=== PATIENT | female | born 1970 | race Asian ===

== ENCOUNTER 2018-03-02 15:49 | Emergency (ER) | payer OTHER ==
[2018-03-02 16:18] VITALS: BP 119/76
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
== END 2018-03-02 16:38 | disposition home or self-care (01) ==
LOC: ED 15:49
DX: T26.41XA Burn of right eye and adnexa, part unspecified, initial encounter (principal); X10.2XXA Contact with fats and cooking oils, initial encounter; Y92.511 Restaurant or cafe as the place of occurrence of the external cause
CPT/HCPCS: 1040M; 99282

== ENCOUNTER 2019-10-18 12:20 | Day surgery (SDC) | payer OTHER ==
[~2019-10-18 12:20] MED LIST: LIDOCAINE 1%-EPI 1:100000 20 ML MDV ONE; LIDOCAINE-MPF 1% 30 ML VIAL ONE; VASOPRESSIN 20 UNIT/ML VIAL ONE
[2019-10-18] MEDS ORDERED: LACTATED RINGERS 1,000 ML IV ONE (12:37)
[2019-10-18 13:00] LABS: HCG UR QUAL NEGATIVE
--- NOTE | 2019-10-18 13:43 | ANESTHESIA ---
Pre-Anesthesia VS, & Labs - Diagnosis dysmenorrhea - Procedure myosure hysteroscopy, D&C Vital Signs: Temp Pulse Resp BP Pulse Ox 36.9 C 73 16 102/59 L 98 10/18/19 12:37 10/18/19 12:37 10/18/19 12:37 10/18/19 12:37 10/18/19 12:37 Height 4 ft 11.84 in Weight (kg) 49.6 kg Body Mass Index 21.7 - NPO >8 hours - Is Patient ?: No - Lab Results Lab results reviewed: Yes Home Medications and Allergies Home Medications: Ambulatory Orders Ascorbic Acid [Vitamin C] 250 mg PO 10/12/19 Cholecalciferol (Vitamin D3) [Vitamin D3] 1,250 mcg PO 10/12/19 Lactobacillus Acidophilus [Probiotic Acidophilus] 1.5 mg PO 10/12/19 Multivitamin [One Daily Multivitamin] 1 each PO 10/12/19 Coin-3/Dha/Epa/Fish Oil [Fish Oil 1,000 mg Softgel] 1 each PO 10/12/19 Vitamin E 1,000 unit PO 10/12/19 Levothyroxine [Synthroid] 88 mcg PO QDAC 08/04/17 Ascorbic Acid [Vitamin C] 250 mg PO 10/12/19 Cholecalciferol (Vitamin D3) [Vitamin D3] 1,250 mcg PO 10/12/19 Lactobacillus Acidophilus [Probiotic Acidophilus] 1.5 mg PO 10/12/19 Multivitamin [One Daily Multivitamin] 1 each PO 10/12/19 Coin-3/Dha/Epa/Fish Oil [Fish Oil 1,000 mg Softgel] 1 each PO 10/12/19 Vitamin E 1,000 unit PO 10/12/19 Allergies/Adverse Reactions: Allergies Allergy/AdvReac Type Severity Reaction Status Date / Time pineapple Allergy Itching Verified 10/12/19 08:54 Anes History & Medical History - Anesthetic History Anesthesia Complications: reports: No previous complications, Post-Operative Nausea/Vomiting (with colonoscopy) Family history of Anesthesia Complications: Denies Family history of Malignant Hyperthermia: Denies - Medical History Cardiovascular: reports: None Pulmonary: reports: None Gastrointestinal: reports: None Urinary: reports: Other Musculoskeletal: reports: None Endocrine/Autoimmune: reports: HyPOthyroidism, Other Skin: reports: None Smoking Status: Current every day smoker Psychosocial: reports: Alcohol, Cannabis - Surgical History General: Colonoscopy Orthopedic: Other Exam General: Alert, Oriented x3, Cooperative Dental: WNL Mouth Openin Fingerbreadth Neck Mobility: Normal Mallampati classification: II Thyromental Distance: 4-6 cm Respiratory: Lungs clear, Normal breath sounds, No respiratory distress Cardiovascular: Regular rate Neurological: Normal speech Mental/Cognitive Status: Alert/Oriented X3, Normal for patient Cognitive Status: Within normal limits Plan Anesthesia Type: General Consent for Procedure(s) Verified and Reviewed: Yes Code Status: Attempt Resuscitation ASA classification: 2-Mild systemic disease Is this case an emergency?: No
[2019-10-18] MEDS ORDERED: MIDAZOLAM 2 MG/2 ML VIAL IVP ONE (14:31)
[2019-10-18] MEDS ORDERED: DEXAMETHASONE 4 MG/ML VIAL IVP ONE (14:31)
[2019-10-18] MEDS ORDERED: LIDOCAINE-MPF 2% 5 ML VIAL IM ONE (14:31)
[2019-10-18] MEDS ORDERED: fentaNYL 100 MCG/2 ML VIAL IVP ONE (14:31)
[2019-10-18] MEDS ORDERED: ONDANSETRON 4 MG/2 ML VIAL IVP ONE (14:31)
[2019-10-18] MEDS ORDERED: KETOROLAC 30 MG/ML VIAL IVP ONE (14:31)
[2019-10-18] MEDS ORDERED: PROPOFOL 200 MG/20 ML VIAL IVP ONE (14:31)
[2019-10-18] MEDS ORDERED: LIDOCAINE 1% 50 ML MDV IM ONE ×2 (14:59)
[2019-10-18] MEDS ORDERED: SILVER NITRATE APPLICATOR TOP ONE (15:12)
[2019-10-18] MEDS ORDERED: oxyCODONE 5 MG TABLET PO PRN (15:21)
[2019-10-18] MEDS ORDERED: ONDANSETRON 4 MG/2 ML VIAL IVP PRN (15:21)
--- NOTE | 2019-10-18 15:24 | OPERATIVE REPORT ---
Operative Report - General Procedure Date: 10/18/19 Planned Procedure: diagnostic hysteroscopy, dilation and curettage Pre-Op Diagnosis: abnormal uterine bleeding Procedure Performed: diagnostic hysteroscopy, endometrial curretting with myosure, dilation and curettage Post Op Diagnosis: same as above - Procedure Note Primary Surgeon: Cayden Guzman Anesthesia Provider: Kell Jones Anesthesia Technique: General ET tube Pathology: endometrial curettings IV Fluids (mL): 400 Estimated Blood Loss (mL): 5 Urine Output (mL): 90 Indications: abnormal uterine bleeding, endometrial biopsy in office unsuccessful due to stenotic os Findings: lush endometrium, no mass. Scant tissue returned. Fluid deficit 545 ml Complications: none - Other Other Information/Narrative: After informed consent was assured, the patient was taken to the operating room where anesthesia was induced. Pt was placed in high dorsal lithotomy in yellow fin stirrups. An exam under anesthesia was performed which revealed a small mobile anteverted uterus with Stage II utero-vaginal prolapse. External exam also noted area of hypopigmentation on left labia at 3 o'clock. The patient was prepped and draped in the usual sterile fashion. Hysteroscopy equipment was set up and white balanced. A surgical timeout was performed. A speculum was inserted into the vagina, and a tenaculum was placed on the anterior lip of the cervix. A paracervical block was performed with 1% lidocaine plain. Hanks dilators were used to dilate the cervix up to 15 somali; the cervix was noted to be tortuous, with difficult dilation; the canal twisted to the patient's right and posteriorly, and dilation improved after replacing the tenaculum on the posterior lip of the cervix. The hysteroscope light was turned on and fluids were run through. The hysteroscope was passed through the cervix into the endometrial cavity, which was gently distended with fluid. Initially difficulty was noted distending the cavity, however after increasing the pressure to 90, better visualization was achieved. Lush endometrium noted on all uterine surfaces. The Myosure operative morcellator was passed through the operative sheath into the cavity and used to obtain curettings of the endometrium under suction. The cavity appeared smooth and regular at the conclusion, with normal bilateral ostia. The hysteroscope was withdrawn. A small curette was then inserted to the fundus and drawn along all surfaces of the uterine cavity with good uterine cri obtained. The tenaculum was removed from the cervix; silver nitrate applied to right posterior tenaculum with good hemostasis observed. All instruments were removed from the vagina, and a repeat bimanual exam revealed a small firm uterus and no instruments in the vaginal vault. The pt was taken to PACU in stable condition.
[2019-10-18 16:40] VITALS: BP 96/61
== END 2019-10-18 12:21 | disposition home or self-care (01) ==
LOC: SDS 12:20
PROVIDERS: ATTEND Obstetrics & Gynecology
PROC: 0UDB8ZX Extraction of Endometrium, Via Natural or Artificial Opening Endoscopic, Diagnostic (ICD-10-PCS; principal; 2019-10-18 14:00)
DX: N94.6 Dysmenorrhea, unspecified (principal); N72 Inflammatory disease of cervix uteri; N81.2 Incomplete uterovaginal prolapse; E89.0 Postprocedural hypothyroidism; F32.9 Major depressive disorder, single episode, unspecified; F41.9 Anxiety disorder, unspecified; F17.210 Nicotine dependence, cigarettes, uncomplicated; F12.20 Cannabis dependence, uncomplicated
CPT/HCPCS: 81025

== ENCOUNTER 2022-06-17 11:05 | Outpatient (CLI) | payer OTHER ==
--- NOTE | 2022-06-17 11:38 | XRAY Report ---
PROCEDURE: Hip w/Pelvis 1V RT INDICATIONS: RIGHT HIP PAIN TECHNIQUE: AP pelvis with lateral view(s) of the right hip(s). COMPARISON: None. FINDINGS: Bones: No fractures or dislocations. Pelvic ring appears intact. No suspicious bony lesions. Soft tissues: The visualized bowel gas pattern is normal. No suspicious soft tissue calcifications. IMPRESSION: This is a normal study. Reviewed by: Vin Yap MD on 06/17/2022 11:37 AM PDT Approved by: Vin Yap MD on 06/17/2022 11:37 AM PDT Station ID: [id number]
== END 2022-06-17 11:06 | disposition home or self-care (01) ==
LOC: DI.N 11:05
PROVIDERS: ATTEND Nurse Practitioner
DX: M25.551 Pain in right hip (principal)

== ENCOUNTER 2022-08-02 14:22 | Outpatient (CLI) | payer OTHER ==
--- NOTE | 2022-08-03 11:15 | Mammography Report ---
BILATERAL DIGITAL SCREENING MAMMOGRAM 3D/2D: 08/02/2022 CLINICAL: Routine screening. Comparison is made to exam dated: 06/06/2015 mammogram - [facility]. Both breasts are heterogeneously dense, which may obscure small masses (category c / 51-75% glandular tissue). No significant masses, calcifications, or other findings are seen in either breast. There has been no significant interval change. IMPRESSION: NEGATIVE There is no mammographic evidence of malignancy. A 1 year screening mammogram is recommended. Based on the Tyrer Cuzick model (a risk assessment model) the patients lifetime risk is 9.5% and her 10 year risk is 2.2%. According to the ACR, ACS, and NCCN guidelines, an annual breast MRI exam sammy g with mammogram is recommended if the patients lifetime risk is 20% or greater. This exam was interpreted at Station ID: [id number]. NOTE: For mammograms, a report in lay terms will be sent to the patient. Approximately 15% of breast malignancies will not be visualized mammographically. In the management of a palpable breast mass, a negative mammogram must not discourage biopsy of a clinically suspicious lesion. Electronically Signed By: Kike mcclelland/moiz:08/02/2022 15:43:00 ACR BI-RADS Category 1: Negative 3341F PARENCHYMAL PATTERN: (D) - The breast(s) demonstrate(s) heterogeneously dense fibroglandular darrell whitmore. BI-RADS CATEGORY: (1) - 1 RECOMMENDATION: (ANNUAL) - Recommend routine annual screening mammography. [id number] 1 year screening LATERALITY: (B)
== END 2022-08-02 14:23 | disposition home or self-care (01) ==
LOC: DI.N 14:22
PROVIDERS: ATTEND Nurse Practitioner
DX: Z12.31 Encounter for screening mammogram for malignant neoplasm of breast (principal)